=== PATIENT | female | born 1945 | race Caucasian/White ===

== ENCOUNTER 2022-01-07 05:58 | Observation (INO) ==
--- NOTE | 2021-12-25 10:47 | Anesthesiology Consultation ---
Date of Service December 25, 2021 Assessment & Plan (1) Encounter for pre-operative examination: Chart Review Chart Review: Acceptable Risk for Surgery (pending preop Covid testing results ) and Patient NOT seen in Pre Admission Testing - Check BSG AM DOS Per nursing assessment 12/25/21, pt traveled to [place] 12/19/21-12/23/21 for a family gathering. Did not mask. Drove by car. No known Covid positive exposures or Covid related symptoms. No known Covid infection in the past 90 days. Pt is fully vaccinated for Covid. Preop Covid testing scheduled 01/05/22= will await results History Surgery Operation Date: 01/07/22 07:30 Proposed Procedures p Robotic Laparoscopic Assisted Partial Nephrectomy, Removal of Cyst Renal - Alonso Millan, Height/Weight Height: 5 ft 3 in Weight: 120.202 kg Allergies Allergy/AdvReac Type Severity Reaction Status Date / Time adhesive Allergy Severe RASH Verified 12/25/21 09:54 azithromycin Allergy Intermediate Hives Verified 12/25/21 09:54 Medications Home Medications Medication Instructions Recorded Confirmed Last Taken ibuprofen 125 mg-acetaminophen 250 2 tab PO BID 03/10/21 12/25/21 Unknown mg tablet (Advil Dual Action) lisinopril 10 mg tablet 10 mg PO HS 03/10/21 12/25/21 Unknown lorazepam 0.5 mg tablet (Ativan) 0.5 mg PO DAILY PRN Anxiety 03/10/21 12/25/21 Unknown metformin 500 mg 24 hr 500 mg PO BID 03/10/21 12/25/21 Unknown tablet,extended release metronidazole 1 % topical gel 1 applic topical QAM 03/10/21 12/25/21 Unknown (Metrogel) nystatin 100,000 unit/gram topical 1 applic topical DAILY PRN Rash 03/10/21 12/25/21 Unknown powder nystatin-triamcinolone 100,000 1 applic topical DAILY PRN Rash 03/10/21 12/25/21 Unknown unit/g-0.1 % topical cream propylene glycol 0.6 % eye drops 1 drp ophthalmic (eye) DAILY PRN 03/10/21 12/25/21 Unknown (Systane Complete) Dry Eye(S) sertraline 50 mg tablet (Zoloft) 50 mg PO HS 03/10/21 12/25/21 Unknown simvastatin 40 mg tablet 40 mg PO HS 03/10/21 12/25/21 Unknown vitamin B complex 2 cap PO BID 12/25/21 12/25/21 Unknown Past Medical History Medical History (Updated 12/25/21 @ 11:01 by Madalyn Beckham PA-C) Degenerative disc disease Diabetes mellitus, type 2 NIDDM Herniated lumbar intervertebral disc History of breast cancer 2015- left side per records S/p lumpectomy, brachytherapy /Armidex treatment Hypercholesteremia Hypertension Renal cyst Benign appearing to left kidney; right kidney small benign cysts Renal mass noted to left kidney (reason for procedure) Sciatic nerve pain Sleep apnea cpap Past Family History Family History Aunt Diabetes Father Heart disease Hypertension Mother Hypertension Cancer endometrial Past Surgical History Surgical History H/O section x2 H/O: hysterectomy History of bilateral knee arthroplasty History of colonoscopy History of lumpectomy of left breast 12/2015 d/t breast CA - had radiation at [facility] History of tonsillectomy Hx of bilateral cataract extraction Hx of removal of cyst right hand Social History Smoking Status: Former smoker tobacco type: cigarettes Smoking cigarettes per day: 1/2 pk or less per day Do You Dip or Chew Tobacco: No Smoking End Date: 45 years ago Hx Alcohol Use: Yes Alcohol type: beer and wine alcohol intake frequency: holidays/special occasions only Hx Substance Use: No substance use type: does not use Lab Results Anesthesia Preop Results Results Anesthesia Widget: WBC 7.81 K/ul (4.8-10.8) 12/08/21 Hgb 12.3 g/dl (12.0-16.0) 12/08/21 Hct 37.3 % (34.1-44.9) 12/08/21 Plt 240 K/uL (130-400) 12/08/21 Na 138 mmol/L (136-145) 12/08/21 K 4.6 mmol/L (3.5-5.1) 12/08/21 Cl 107 mmol/L (98-107) 12/08/21 CO2 23 mmol/L (21-32) 12/08/21 BUN 20 mg/dl (6-23) 12/08/21 Creat 0.86 mg/dl (0.6-1.2) 12/08/21 Glucose Level 135 mg/dl (70-99(Fasting)) H 12/08/21 HA1c 6.9 % H 10/29/21 Urine Color Yellow 12/08/21 Urine Appearance Clear (Clear) 12/08/21 Urine pH 5.0 (4.5-7.5) 12/08/21 Urine Specific [place] 1.018 (1.000-1.030) 12/08/21 Urine Protein Negative (Negative) 12/08/21 Urine Glucose (UA) Negative (Negative) 12/08/21 Urine Ketones Negative (Negative) 12/08/21 Urine Blood Negative (Negative) 12/08/21 Urine Nitrite Negative (Negative) 12/08/21 Urine Bilirubin Negative (Negative) 12/08/21 Urine Urobilinogen Negative (Negative) 12/08/21 Urine Leukocyte Esterase Trace (Negative) H 12/08/21 Urine WBC (Auto) 1-5 /hpf (0-5) 12/08/21 Urine RBC (Auto) 5-10 /hpf (0-4) H 12/08/21 Urine Hyaline Casts (Auto) 1-5 /lpf (0-5) 12/08/21 Urine Epithelial Cells (Auto) >30 /lpf (0-5) H 12/08/21 Urine Bacteria (Auto) Negative (Negative) 12/08/21 Testing Laboratory Results 12/08/21= URINE CULTURE: More than three types of organisms present, all moderate counts mixed probable skin juliet Electrocardiogram Date: 12/08/21 Findings: + NSR @ (93bpm ) Nonspecific T wave abnormality When compared to EKG from October 06, 2012- no significant change was found per cardio. Chest X-Ray Date: 12/03/21 Findings: + NAD Tortuous aorta
[2022-01-07] MEDS ORDERED: LR 15ML/HR IV SCH (06:00)
[2022-01-07] MEDS ORDERED: fentaNYL citrate 100 MCG/2 ML VIAL ONE ×2 (06:53→06:56)
[2022-01-07] MEDS ORDERED: MIDAZOLAM HCL 1 MG/ML 2ML VIAL ONE (06:53)
[2022-01-07] MEDS ORDERED: LIDOCAINE 2% MPF LOCAL 5 ML VIAL INFIL ONE (06:53)
[2022-01-07] MEDS ORDERED: ONDANSETRON INJ 2 MG/ML 2 ML VIAL ONE ×2 (06:53→11:37)
[2022-01-07] MEDS ORDERED: DEXAMETHASONE SOD INJ 4 MG/ML VIAL ONE (06:53)
[2022-01-07] MEDS ORDERED: PROPOFOL IV EMULSION 10 MG/ML 20 ML VIAL IV ONE (06:53)
--- NOTE | 2022-01-07 07:07 | History & Physical Report ---
Date of Service January 07, 2022 Assessment & Plan (1) Renal mass: (2) Hypertension: (3) Sleep apnea: (4) Diabetes: Plan Left Renal Mass with suspicious features. Left renal cyst. Risks and benefits discussed at length for procedure. These include bleeding, infection, injury to surrounding tissues or organs, and risks associated with anesthesia. Patient states understanding and agrees to proceed. Will sign consent and proceed. Plan for Left Robot Asst Laparoscopic Possible partial nephrectomy with possible removal of cyst. History of Present Illness Primary Care Provider: Dolly Bundy Patient here for procedure. No changes in medical issues. No major changes in urinary issues. Continued issues and concerns. No change in pain or discomfort. No severe fevers or chills. No chest pain or shortness of breath. Risks and benefits discussed at length for procedure. These include bleeding, infection, injury to surrounding tissues or organs, and risks associated with anesthesia. Patient and/or family states understanding and agrees to proceed. Consent and supporting information completed. Allergies Allergy/AdvReac Type Severity Reaction Status Date / Time adhesive Allergy Severe RASH Verified 01/07/22 06:17 azithromycin Allergy Intermediate Hives Verified 01/07/22 06:17 Home Medications Medication Instructions Recorded Confirmed Type ibuprofen 125 mg-acetaminophen 250 2 tab PO BID 03/10/21 01/07/22 History mg tablet (Advil Dual Action) lisinopril 10 mg tablet 10 mg PO HS 03/10/21 01/07/22 History lorazepam 0.5 mg tablet (Ativan) 0.5 mg PO DAILY PRN Anxiety 03/10/21 01/07/22 History metformin 500 mg 24 hr 500 mg PO BID 03/10/21 01/07/22 History tablet,extended release metronidazole 1 % topical gel 1 applic topical QAM 03/10/21 01/07/22 History (Metrogel) nystatin 100,000 unit/gram topical 1 applic topical DAILY PRN Rash 03/10/21 01/07/22 History powder nystatin-triamcinolone 100,000 1 applic topical DAILY PRN Rash 03/10/21 01/07/22 History unit/g-0.1 % topical cream propylene glycol 0.6 % eye drops 1 drp ophthalmic (eye) DAILY PRN 03/10/21 01/07/22 History (Systane Complete) Dry Eye(S) sertraline 50 mg tablet (Zoloft) 50 mg PO HS 03/10/21 01/07/22 History simvastatin 40 mg tablet 40 mg PO HS 03/10/21 01/07/22 History vitamin B complex 2 cap PO BID 12/25/21 01/07/22 History Past Med/Surg History Medical History Degenerative disc disease Diabetes mellitus, type 2 NIDDM Herniated lumbar intervertebral disc History of breast cancer 2015- left side per records S/p lumpectomy, brachytherapy /Armidex treatment Hypercholesteremia Hypertension Renal cyst Benign appearing to left kidney; right kidney small benign cysts Renal mass noted to left kidney (reason for procedure) Sciatic nerve pain Sleep apnea cpap Surgical History H/O section x2 H/O: hysterectomy History of bilateral knee arthroplasty History of colonoscopy History of lumpectomy of left breast 12/2015 d/t breast CA - had radiation at [facility] History of tonsillectomy Hx of bilateral cataract extraction Hx of removal of cyst right hand Family History Aunt Diabetes Father Heart disease Hypertension Mother Hypertension Cancer endometrial Social History Smoking Status: Former smoker Cigarettes Per Day: 1/2 pk or less per day; Smoking End Date: 45 years ago; Second Hand Exposure: No; Do You Dip or Chew Tobacco: No; Tobacco Cessation Education Requested by Patient: No Hx Alcohol Use: Yes Alcohol type: beer and wine Alcohol Intake Frequency: Monthly or Less Hx Substance Use: No Preferred Language: Greenlandic Communication Ability: Effective Hearing Ability: Normal Cook Larder Required: No Beliefs That Will Affect Care: None marital status: Current Living Situation: Spouse current occupational status: retired Other Information That Helps Us Care for You: No Feels Safe at Home: Yes Safety Concerns: Feels Safe At This Time Assistive Devices: Cane and CPAP Review of Systems All systems reviewed & are unremarkable except as noted in HPI & below Physical Exam Physical Exam: General: Alert/Arousable. No Acute illness. . HEENT: Inspection normal. Normal inspection of face. Normal inspection of neck. Psychologic: Normal affect/No change in mentation. Respiratory: No use of accessory muscles. No respiratory changes or exacerbation or changes with tachypnea or dyspnea. Cardiovascular: No tachycardia Skin: [place] and Dry. No new rashes or visible lesions. Abdomen: Normal inspection. No guarding. Results & Data ([facility]) Vital Signs (Past 12 Hours) Vital Signs Temp Pulse Resp BP Pulse Ox O2 Del Method 01/07/22 06:22 36.9 C 90 20 164/78 H 95 Room Air, CPAP 01/07/22 06:22 Room Air, CPAP PG Care Time/CCT Total # of Minutes Spent Total Time Spent with Patient: Total time spent is greater than 50% in coordination of care (as documented) at patient's floor/unit and/or counseling patient: Coding Level of Care Code None Diagnoses Renal mass N28.89 Hypertension I10 Sleep apnea G47.30 Diabetes E11.9
[2022-01-07] MEDS ORDERED: SUGAMMADEX SODIUM 200 MG/2 ML VIAL IV ONE (07:31)
[2022-01-07] MEDS ORDERED: BUPIVACAINE 0.5 % 5 MG/1 ML MPF 30ML VIAL ONE (08:21)
[2022-01-07] MEDS ORDERED: FLOSEAL HEMOSTATIC MATRIX 10ML TOP ONE (10:29)
[2022-01-07] MEDS ORDERED: SURGICEL ABSORB HEMOSTAT 2IN X 14IN TOP ONE (10:29)
[2022-01-07] MEDS ORDERED: TISSEEL FIBRIN SEALANT 10ML TOP ONE (10:29)
[2022-01-07] MEDS ORDERED: ceFAZolin 330 MG/ML 1 GM VIAL ONE (11:38)
[2022-01-07] MEDS ORDERED: ceFAZolin 2000MG 2,000 MG/15 ML SYR IV STA (11:38)
[2022-01-07] MEDS ORDERED: ACETAMINOPHEN 1000 MG/100 ML IV IV ONE (11:44)
[2022-01-07] MEDS ORDERED: ONDANSETRON INJ 2 MG/ML 2 ML VIAL IV PRN ×2 (12:24→13:06)
[2022-01-07] MEDS ORDERED: MoRPHine SULFATE 2 MG/ML CARP IV PRN (12:24)
[2022-01-07] MEDS ORDERED: MoRPHine SULFATE 4 MG/ML 1 ML CARP\\VIAL IV PRN (12:24)
[2022-01-07] MEDS ORDERED: oxyCODONE HCL IR 5 MG TAB (IMMEDIATE RELEASE) PO PRN (12:24)
--- NOTE | 2022-01-07 12:40 | Operative Report ---
PG Post Operative Report Pre & Post Diagnosis Operation Date: 01/07/22 07:50 Pre-Op Diagnosis: Renal Mass Left. Large left Renal Cyst Post-Op Diagnosis: Renal Mass Left, Large Left Renal Cyst I identified the patient and participated in the time-out.: Yes Procedure Operation Date: 01/07/22 07:50 Actual Procedures p Robotic Laparoscopic Assisted Left Partial Nephrectomy, Decortication/Removal of Large Cyst Renal, Extensive lysis of adhesions - Alonso Millan, Surgeon Alonso Millan, II, DO Customer Development Representative Durga ERVIN and Celena CHEUNG Estimated Blood Loss 50 Findings Consistent with Post-Op Diagnosis Massive anterior cyst with large Upper pole renal mass on left. Extensive adhesions of colon and omentum to lateral wall. Specimens Left Renal mass. Left Decorticated Cyst wall Drains 10 Fr Bean Drain 18 Fr Mckenzie catheter. Anesthesia Type General Complications none Disposition Disposition: Recovery Room Indications Patient with enhancing left renal mass. Patient also had a 13 cm large renal cyst causing considerable mass effect. Risk and benefits were discussed at length. Patient elected to undergo robotic assisted laparoscopic partial nephrectomy. Description of Procedure The patient was brought to the operative suite and placed under general endotracheal intubation anesthesia in the supine position. The patient was transferred to the lateral position with the operative side up. At this point, the patient prepped and draped in the usual sterile fashion and a timeout was co mpleted. Preoperative antibiotics of Ancef 3 grams had been given. NERY's and SCD's were placed on the patient's lower extremities. A catheter was placed using sterile technique. With the time out completed the patient was flexed and the skin was marked. Due to patient's habitus from morbid obesity as well as the mass from the large renal cyst the positioning had to be adjusted. The lateral camera port site was anesthetized. A small incision was made into the skin and subcutaneous tissues. A Varess needle was selected and placed. The needle was easily moved and it was irrigated and aspirated without any issues or concerns for placement. Insufflation commenced. Once insufflated, A camera port was placed. The cavity was insufflated to 12-15 mmHG. A laparoscopic camera was placed and the abdominal cavity inspected. No bleeding, injury, or other concerning features were noted. At this point, the skin was marked for port placement and 8mm working ports were placed. The skin was anesthetized down to fascia and an approx 1cm incision was made to place the 3 x 8mm ports. Two assistant housekeeping manager ports were also placed in similar fashion under direct visualization in a paramedian position. The robot was positioned and docked. The camera was placed and all trocars were positioned under direct visualization. Dilia SILVEIRANP was integral in port placement, camera utilization, and docking procedure. She remained in sterile attire and then proceeded to assist the remainder of the case. Dr. Jose Dallas was readily available for assistance during velazco portions of the proceeding procedure. Dr. Dallas assumed the airplane first officer role for the major portion of mass removal, vessel clamping, and closure of the kidney. At this point, I transitioned to the robotic console. The colon was mobilized medially to expose the retroperitoneum and the area assessed. Extensive Adhesions were freed to allow mobilization. Greater than 20 minutes were necessary to excise through the extensive adhesions and attachments especially of the omental tissue. Both the colon and the omentum were adhered likely due to inflammation around the very large cystic lesion. An additional amount of s mall amount of adhesions were noted from the colon and were freed. Once freed the large cystic lesion was exposed. At this point the cystic wall was opened to allow drainage of the large amount of fluid from inside the cystic lesion. Greater than 550 mL of clear fluid was drained from the large cystic lesion which drastically allowed an increase in mobility. Additional adhesions were then further dissected free to allow the colon to be further released. These were dissected with blunt technique. Cautery was used to assist dissection and control bleeding. The retroperitoneal fat was assessed. The ureter and gonadal vein were identified. The ureter was isolated and dissection was taken superiorly. This was followed to the renal pelvis. The Renal Artery and Vein were then cleaned and exposed. Clamp placement was assessed and good access was achieved. The perirenal fat anterior to the kidney was then dissected. Due to the large amount of laxity of tissue after the drainage of the cyst the tissue surrounding the cyst were first dissected around. The cystic wall was then incised and the cyst cavity was unroofed with removal of the severely thickened and fibrous cystic capsule over the cavity with the kidney. All bleeding was controlled though it was found to be extremely minimal throughout the process. Additional pockets of fluid were discovered as the cystic lesion did have numerous loculations and additional chambers. Once the cyst was completely decorticated the edges of the incised tissue were assessed and a areas of bleeding were fulgurated using cautery. With the excess tissue removed the area was inspected. The bed of the cystic lesion did not have any areas of active bleeding. No sign of active drainage from any of the areas or cavities. With removal of this tissue the mass was considerably easier to identify and the surrounding perinephric fat was able to be cleared to allow access to the edges of the mass. The mass and surrounding tissues were exposed. The kidney was then further mobilized. The ultrasound probe was placed and the mass further examined. The edges were marked. At this point Dr. Jose Dallas scrubbed into continue with the mass removal section of the procedure. The Vessels were assessed a final time. 1 x Bulldog clamps were placed on the artery and 1 x Bulldog clamp on the vein. The kidney appropriately blanched. The previously marked margins were used to start the incision into the kidney. The mass was completely excised without evidence of penetrating into the capsule of the mass. The base of resection bed was assessed and small vessels were cauterized. The collecting system did appear to be opened in a small area. A barbed suture was selected and the nephrotomy closed. Care was taken to close the collecting system opening. 3-0 Vicryl sutures were then used to close the edges of the elliptical opening. A total of 2 vicryl sutures were used to close and bolster the edges. At this point, the bulldog cla mps were removed. Warm ischemia time, in total, was 13 minutes and 32 seconds. The kidney was full assessed after removal of clamps. No bleeding or other major areas of concern. Weck and Hemolock clips were used to bolster and tightened to approximate the edges. Surgicel hemostatic agent sheets were placed around the vessels and on the incised edge. Additional Surgicel was also placed within the cystic cavity. Tisseel and Floseal hemostatic agents were also placed along the incised edge as well as over the cystic cavity. These hemostatic agent was also placed on the vessels. No major bleeding or other issues. Gerota's tissues were replaced and additional 3-0 Vicryl suture which was attached with Hem-o-alonso clips to cover the area. The excised mass was placed in an endocatch bag for [facility]. An additional Endo Catch bag was then used to place the decorticated tissue from the large renal cyst. At this point Dr. Dallas return the airplane first officer duties to Dilia Calixto. The entire dissection space was inspected one final time. No bleeding or injuries or areas of concern were noted. No tumor or other concerning features were noted. At this point, the robot was undocked and moved away from the patient. The port sites were all assessed laparoscopically. The endoscopic bags wer moved into the lower assistant housekeeping manager port. The 12 mm port sites were closed with the Miguelito Fernández device. The other ports were assessed and no issues observed. The most lateral port site was used to place a 10 Armenian Bean drain. This was attached with a silk suture and positioned in along the gutter of the left side. The ports were then all removed. The abdomen was emptied of the excess air. And the drain was placed to a YOVANI suction. The assistant housekeeping manager port incision was opened further exposing fascia which was then opened in order to removed the mass within the bag. The 2 different specimens were sent off for pathologic analysis. A running 1-0 PDS suture was used to close fascia. The skin at each site was closed with a surgical stapling device. The area was cleaned and bandages were placed on each incision. The patient was cleaned and bandaged. The patient was moved back into the supine position The patient was cleaned, aroused from anesthesia, and transferred to the pacu in stable condition having tolerated the procedure well with no complications. I was present and participated in all aspects of the procedure. Jose Dallas MD was integral in the major portion of the procedure as above. AZIZA Nayak was critical in the portions as mentioned above. Will plan to observe postoperatively and monitor. Mckenzie to be removed in the morning. Will likely maintain drain and monitor drainage after decortication of cyst. Will likely plan on drain removal in approx 1 week with sammy in 7-10 days. Plan to discuss pathology in approx 2-3 weeks by phone once available. I attest to the content of the Intraoperative Record and any orders documented therein. Any exceptions are noted below.
[2022-01-07] MEDS ORDERED: ATROPINE SULFATE 0.1 MG/ML 10ML SYR IV PRN (13:06)
[2022-01-07] MEDS ORDERED: PROMETHAZINE HCL 6.25 MG in SODIUM CHLORIDE 0.9% 50 ML IV PRN (13:06)
[2022-01-07] MEDS ORDERED: HYDROmorphone INJ 0.5 MG/0.5 ML SYR ONE (13:09)
[2022-01-07] MEDS: HYDROmorphone INJ 1 MG/ML SYRINGE IV PRN ×5 (13:10→17:06)
[2022-01-07 13:49] LABS: Hematocrit (blood only) 37.6 % (34.1-44.9); Hemoglobin 12.5 g/dl (12.0-16.0); Mean Corpuscular Hemoglobin 31.3 pg (25.0-34.0); Mean Corpuscular Hgb Conc 33.2 g/dL (32.0-36.0); Mean Corpuscular Volume 94.2 fL (80.0-100.0); Mean Platelet Volume 10.2 fL (9.4-12.3); Platelet Count 251 K/uL (130-400); RDW Coefficient of Variation 13.2 % (11.5-14.5); RDW Standard Deviation 45.3 fL (36.4-46.3); Red Blood Count 3.99 M/uL (3.93-5.22)
[2022-01-07 14:01] LABS: BUN Creatinine Ratio 14.6 (10-20); Calcium 9.2 mg/dl (8.5-10.1); Creatinine Clr Calc Pharmacy 50.1 ml/min; Est GFR (Non-African American) 43.2 ml/min; Potassium 4.1 mmol/L (3.5-5.1)
[2022-01-07 14:13] LABS: Basophils # (auto) 0.03 K/uL (0-0.2); Basophils % (auto) 0.2 %; Eosinophils # (auto) 0.03 K/uL (0-0.50); Eosinophils % (auto) 0.2 %; Immature Granulocytes # (auto) 0.11 K/uL (0.00-0.02); Immature Granulocytes % (auto) 0.8 %; Lymphocytes # (auto) 0.85 K/uL (1.2-3.4); Lymphocytes % (auto) 6.2 %; Monocytes # (auto) 1.16 K/uL (0.24-0.82); Monocytes % (auto) 8.5 %; Neutrophils # (auto) 11.52 K/uL (1.4-6.5); Neutrophils % (auto) 84.1 %
[2022-01-07] MEDS ORDERED: PHARMACY GLYCEMIC MGMT CONSULT PRN (14:42)
[2022-01-07] MEDS ORDERED: LORazepam 0.5 MG TAB PO PRN (14:42)
[2022-01-07] MEDS ORDERED: NYSTATIN POWDER 15GM BTL EXT PRN (14:42)
[2022-01-07] MEDS ORDERED: GLUCOSE 40% GEL 15 GM TUBE PO PRN (15:00)
[2022-01-07] MEDS ORDERED: GLUCAGON FOR INJ 1 MG VIAL IM PRN (15:00)
[2022-01-07] MEDS ORDERED: CARBOHYDRATES FOR HYPOGLYCEMIA PO PRN (15:00)
[2022-01-07] MEDS ORDERED: GLUCOSE 10 TAB/TUBE PO PRN (15:00)
[2022-01-07] MEDS ORDERED: NovoLIN-N (NPH) PER UNIT CHARGE SQ ONE (15:00)
[2022-01-07] MEDS ORDERED: DEXTROSE 50% 50 ML SYRINGE IV PRN (15:00)
--- NOTE | 2022-01-07 15:01 | Pharmacy Report ---
Pharmacy Glycemic Short Note 2 - Date of Service January 07, 2022 - Glycemic Short BSG Results (Last 24 hours): 01/07/22 01/07/22 01/07/22 06:23 13:11 14:27 Glucose 221 H POC Glucose 146 H 196 H OUTPATIENT ANTIDIABETIC REGIMEN: * metformin 500 mg PO BID * HbA1C = 6.9% ASSESSMENT: * Patient is s/p surgery for kidney mass. Patient received steroids during surgery- dexamethasone 4 mg IV x 1. * BSG prior to surgery was 146 mg/dL. After surgery was 196 mg/dL. * Due to body habitus will give 0.4 unit/kg x 1 for steroid hyperglycemia. * Novolog weight-based stress 2. Overnight checks. PLAN FOR INPATIENT GLYCEMIC CONTROL: * Basal insulin * NPH 35 units SQ x 1 * Bolus insulin * NovoLog per scale ACHS or Q6hrs while NPO * Goal Range: Low 110 mg/dL - High 140 mg/dL * Correction Factor: 20 mg/dL/unit * Nutritional / Prandial insulin per carb ratio of 1 unit per 7 grams CHO consumed
[2022-01-07] MEDS: LACTATED RINGER'S 1,000 ML IV SCH (15:26)
--- NOTE | 2022-01-07 15:38 | Anesthesiology Progress Note ---
Date of Service January 07, 2022 Anesthesia Post Procedure Vital Signs Vital Signs: Temp Pulse Pulse Resp BP Pulse Ox O2 Del Method 01/07/22 15:00 36.5 C 89 16 131/75 93 Room Air 01/07/22 14:40 36.9 C 86 16 159/78 H 98 Room Air 01/07/22 14:25 89 21 147/71 H 95 Nasal Cannula 01/07/22 14:15 89 20 162/73 H 95 Nasal Cannula 01/07/22 13:55 89 19 159/72 H 96 Nasal Cannula 01/07/22 14:05 88 19 146/72 H 95 Nasal Cannula 01/07/22 13:45 87 15 163/73 H 96 Nasal Cannula 01/07/22 13:35 36.3 C L 87 15 155/80 H 96 Nasal Cannula 01/07/22 13:25 89 15 183/78 H 96 Room Air 01/07/22 13:15 88 14 172/91 H 97 Oxymask 01/07/22 13:05 89 13 181/79 H 98 Oxymask 01/07/22 12:55 94 H 13 171/64 H 99 Oxymask 01/07/22 12:45 99 H 15 150/82 H 98 Oxymask 01/07/22 12:39 36.0 C L 92 H 20 130/74 97 Oxymask 01/07/22 06:22 36.9 C 90 20 164/78 H 95 Room Air, CPAP 01/07/22 06:22 Room Air, CPAP O2 Flow Rate 01/07/22 15:00 01/07/22 14:40 01/07/22 14:25 2 01/07/22 14:15 2 01/07/22 13:55 2 01/07/22 14:05 2 01/07/22 13:45 2 01/07/22 13:35 2 01/07/22 13:25 01/07/22 13:15 4 01/07/22 13:05 4 01/07/22 12:55 6 01/07/22 12:45 10 01/07/22 12:39 15 01/07/22 06:22 01/07/22 06:22 Pain Intensity Left Leg: Pain Intensity: 4 Left Abdomen: Pain Intensity: 4 Transfer of Care Handoff Completed per policy Notes Mental Status: alert / awake / arousable Patient Amnestic to Procedure: Yes Nausea / Vomiting: adequately controlled Pain: adequately controlled Airway Patency, RR, SpO2: stable & adequate BP & HR: stable & adequate Hydration State: stable & adequate Anesthetic Complications: no major complications apparent
[2022-01-07] MEDS: ACETAMINOPHEN 325 MG TAB PO SCH ×2 (15:50→18:30)
[2022-01-07] MEDS: ceFAZolin 2000MG 2,000 MG/15 ML SYR IV SCH ×2 (15:50→21:12)
--- NOTE | 2022-01-07 16:27 | Hospitalist Consultation ---
Date of Consultation January 07, 2022 Assessment & Plan (1) Renal mass: Alexandria is a 76-year-old female with a past medical history of hyperlipidemia, hypertension, breast cancer, diabetes, cataracts, and sleep apnea who presented for L partial nephrectomy 2/2 renal mass. Consulted for postoperative management. Left renal mass, s/p partial left nephrectomy 01/07/2022 Uncomplicated procedure.DVT prophylaxis, pain control, pathology per surgical team Tylenol 650mg Q6H. Tolerating pain. may continue to use oxycodone for breakthrough pain. avoid morphine if possible 2/2 mildly elevated renal function Preoperative labs: Hemoglobin 12.5, WBC 13, creatinine 1.23 (last baseline 0.8-1.0) Ultrasound 11/2021: 4 x 3.7 x 3 cm last lesion at left upper pole suspicious for RCC Glucose [id number] A1c 6.9% 10/2021 calcium normal COVID-negative Hyperlipidemia Continue simvastatin Hypertension -Last took lisinopril midnight prior to surgery On lisinopril 10 mg p.o. nightly held both post procedurally and in the setting of elevated baseline creatinine Trend BMP Resume at 48 hours, or if needed for hypertension tomorrow if creatinine returns to baseline May use amlodipine 5 mg p.o. or low-dose of hydralazine if needed for acute hypertension greater than 180 overnight Anxiety/depression Continue sertraline 50 mg p.o. nightly We will continue home dose of lorazepam 0.5 mg p.o. as needed, uses rarely for anxiety. Has hx of one panic attak. Only uses ~2x per year. Type 2 diabetes mellitus A1c 6.9% 10/2021 Hold home metformin - Pharmacy consult in place by primary team, appreciate recs. Goal BSG [id number], CF 20, ratio 1:7, basal NPH 35x1 Advance to type II diabetic carb consistent diet when tolerated Obstructive sleep apnea CPAP nightly as needed - Brought home CPAP may use DVT prophylaxis: Per primary surgical team, continued on heparin subcu 5000 every 12 at this Diet: Clears, advance as able per surgical team to type II DM continue LR 100 until p.o. improved/tolerated then discontinue Disposition: [facility] CODE STATUS: Full code (2) Hypertension: (3) Hypercholesteremia: (4) Arthritis: (5) Diabetes: (6) Depression: (7) Sleep apnea: History of Present Illness Attending Physician: Alonso Millan, II, DO History of Present Illness Alexandria is a 76-year-old female with a past medical history of hyperlipidemia, hypertension, breast cancer, diabetes, cataracts, and sleep apnea who presented for L partial nephrectomy 2/2 renal mass. Consulted for postoperative management. Alexandria presented for nephrectomy due to a left renal mass concerning for RCC. Postoperatively seen at bedside and is doing well. She is normotensive, pulse of 86, breathing comfortably with rate of 16 on room air in no acute distress. Surgical dressing is intact, left YOVANI drain with sanguinous material Sukhwinder reports she came in after a year. Has chronic sciatica and spinal arthritis problems. Pain doctor recommended she get an MRI which showed a L re nal spot. She had a followup CT scan which showed a lesion on her kidney. Connect with Dr. Schneider. [place] that her lesion likely not malignant, but needed close monitoring for 1 year. At her followup ultrasound it had enlarged and looked like cancer, and was recommended for removal. She came in today for removal of the malignant lesion and large cyst. She is seen postoperatively and is feeling. Last took lisinopril last night (~16 hours ago) along with cholesterol medicine and antidepressant. Hx type 2 DM. Working on weight loss, DM has worsened with weight gain. has been on Metformin for 3 years. Takes 2x per day. Had diarrhea initially which resolved. Medical History: Reviewed Medications: Reviewed Surgical History: Reviewed Allergies: Reviewed. Azithromycin --> hives. Social History: No tobacco use. Rare social alcohol use, every few months. Code Status: Full Code. Surrogate would be daughter nilam [phone] first, but in conjunction with . Allergies Allergy/AdvReac Type Severity Reaction Status Date / Time adhesive Allergy Severe RASH Verified 01/07/22 06:17 azithromycin Allergy Intermediate Hives Verified 01/07/22 06:17 Home Medications Medication Instructions Recorded Confirmed Type ibuprofen 125 mg-acetaminophen 250 2 tab PO BID 03/10/21 01/07/22 History mg tablet (Advil Dual Action) lisinopril 10 mg tablet 10 mg PO HS 03/10/21 01/07/22 History lorazepam 0.5 mg tablet (Ativan) 0.5 mg PO DAILY PRN Anxiety 03/10/21 01/07/22 History metformin 500 mg 24 hr 500 mg PO BID 03/10/21 01/07/22 History tablet,extended release metronidazole 1 % topical gel 1 applic topical QAM 03/10/21 01/07/22 History (Metrogel) nystatin 100,000 unit/gram topical 1 applic topical DAILY PRN Rash 03/10/21 01/07/22 History powder nystatin-triamcinolone 100,000 1 applic topical DAILY PRN Rash 03/10/21 01/07/22 History unit/g-0.1 % topical cream propylene glycol 0.6 % eye drops 1 drp ophthalmic (eye) DAILY PRN 03/10/21 01/07/22 History (Systane Complete) Dry Eye(S) sertraline 50 mg tablet (Zoloft) 50 mg PO HS 03/10/21 01/07/22 History simvastatin 40 mg tablet 40 mg PO HS 03/10/21 01/07/22 History vitamin B complex 2 cap PO BID 12/25/21 01/07/22 History Patient History Medical History Degenerative disc disease Diabetes mellitus, type 2 NIDDM Herniated lumbar intervertebral disc History of breast cancer 2015- left side per records S/p lumpectomy, brachytherapy /Armidex treatment Hypercholesteremia Hypertension Renal cyst Benign appearing to left kidney; right kidney small benign cysts Renal mass noted to left kidney (reason for procedure) Sciatic nerve pain Sleep apnea cpap Surgical History H/O section x2 H/O: hysterectomy History of bilateral knee arthroplasty History of colonoscopy History of lumpectomy of left breast 12/2015 d/t breast CA - had radiation at [facility] History of tonsillectomy Hx of bilateral cataract extraction Hx of removal of cyst right hand Family History Aunt Diabetes Father Heart disease Hypertension Mother Hypertension Cancer endometrial Social History Smoking Status: Former smoker Cigarettes Per Day: 1/2 pk or less per day; Smoking End Date: 45 years ago; Second Hand Exposure: No; Do You Dip or Chew Tobacco: No; Tobacco Cessation Education Requested by Patient: No Hx Alcohol Use: Yes Alcohol type: beer and wine Alcohol Intake Frequency: Monthly or Less Hx Substance Use: No Preferred Language: Armenian Communication Ability: Effective Hearing Ability: Normal Party Director Required: No Beliefs That Will Affect Care: None marital status: Current Living Situation: Spouse current occupational status: retired Other Information That Helps Us Care for You: No Feels Safe at Home: Yes Safety Concerns: Feels Safe At This Time Assistive Devices: Cane and Walker Review of Systems Review of Systems: All systems reviewed & are unremarkable except as noted in HPI & below Physical Exam Physical Exam: General: A&Ox3. NAD. Cooperative. HEENT: Atraumatic, normocephalic. Vision and hearing grossly intact Pulm: CTAB A&P. -wheezes, -rales, -rhonchi. Symmetrical chest rise. No increase in work of breathing. No respiratory distress. Cardiac: RRR, -mrg. Radial pulses intact and symmetrical. Abdominal: Surgical dressing intact, focal overlying tenderness in left lower quadrant and mild on right without rebound/guarding. Dressing is C/D/I. YOVANI drain with sanguinous material Extremities: Warm, dry. Moving all extremities equally. Sensation soft touch intact in hands and feet without deficit. Entomology Teacher strength and ankle dorsiflexion/plantarflexion intact. No edema. Results & Data Results & Data ([facility]) Vital Signs (Past 12 Hours) Vital Signs Temp Pulse Pulse Resp BP Pulse Ox O2 Del Method 01/07/22 15:39 36.8 C 86 16 125/75 93 Room Air 01/07/22 15:00 36.5 C 89 16 131/75 93 Room Air 01/07/22 14:40 36.9 C 86 16 159/78 H 98 Room Air 01/07/22 14:25 89 21 147/71 H 95 Nasal Cannula 01/07/22 14:15 89 20 162/73 H 95 Nasal Cannula 01/07/22 13:55 89 19 159/72 H 96 Nasal Cannula 01/07/22 14:05 88 19 146/72 H 95 Nasal Cannula 01/07/22 13:45 87 15 163/73 H 96 Nasal Cannula 01/07/22 13:35 36.3 C L 87 15 155/80 H 96 Nasal Cannula 01/07/22 13:25 89 15 183/78 H 96 Room Air 01/07/22 13:15 88 14 172/91 H 97 Oxymask 01/07/22 13:05 89 13 181/79 H 98 Oxymask 01/07/22 12:55 94 H 13 171/64 H 99 Oxymask 01/07/22 12:45 99 H 15 150/82 H 98 Oxymask 01/07/22 12:39 36.0 C L 92 H 20 130/74 97 Oxymask 01/07/22 06:22 36.9 C 90 20 164/78 H 95 Room Air, CPAP 01/07/22 06:22 Room Air, CPAP O2 Flow Rate 01/07/22 15:39 01/07/22 15:00 01/07/22 14:40 01/07/22 14:25 2 01/07/22 14:15 2 01/07/22 13:55 2 01/07/22 14:05 2 01/07/22 13:45 2 01/07/22 13:35 2 01/07/22 13:25 01/07/22 13:15 4 01/07/22 13:05 4 01/07/22 12:55 6 01/07/22 12:45 10 01/07/22 12:39 15 01/07/22 06:22 01/07/22 06:22 PG Care Time/CCT Total # of Minutes Spent Total Time Spent with Patient: Total time spent is greater than 50% in coordination of care (as documented) at patient's floor/unit and/or counseling patient: Coding Level of Care Code 77094 Inpt Consult Level 4 Diagnoses Renal mass N28.89 Hypertension I10 Hypercholesteremia E78.00 Arthritis M19.90 Diabetes E11.9 Depression F32.A Sleep apnea G47.30
[2022-01-07] MEDS: INSULIN ASPART PER UNIT SC SCH ×2 (18:30→21:12)
[2022-01-07] MEDS: DOCUSATE SODIUM 100 MG CAP PO SCH (20:13)
[2022-01-07] MEDS: HEPARIN SOD 5,000 UNIT/0.5 ML VIAL SQ SCH (20:13)
[2022-01-07] MEDS: SIMVASTATIN 40 MG TAB PO SCH (20:13)
[2022-01-07] MEDS: SERTRALINE HCL 50 MG TABLET PO SCH (20:13)
[2022-01-07] MEDS ORDERED: lisinopril 10 MG TAB PO SCH (21:00)
[2022-01-08] MEDS: INSULIN ASPART PER UNIT SC SCH ×6 (00:09→20:43)
[2022-01-08] MEDS: ACETAMINOPHEN 325 MG TAB PO SCH ×4 (00:11→18:06)
[2022-01-08] MEDS: LACTATED RINGER'S 1,000 ML IV SCH ×3 (00:12→18:07)
[2022-01-08 06:28] LABS: Basophils # (auto) 0.03 K/uL (0-0.2); Basophils % (auto) 0.3 %; Eosinophils # (auto) 0.04 K/uL (0-0.50); Eosinophils % (auto) 0.4 %; Hematocrit (blood only) 31.8 % (34.1-44.9); Hemoglobin 10.4 g/dl (12.0-16.0); Immature Granulocytes # (auto) 0.03 K/uL (0.00-0.02); Immature Granulocytes % (auto) 0.3 %; Lymphocytes # (auto) 1.13 K/uL (1.2-3.4); Mean Corpuscular Hgb Conc 32.7 g/dL (32.0-36.0); Mean Corpuscular Volume 94.9 fL (80.0-100.0); Mean Platelet Volume 9.8 fL (9.4-12.3); Monocytes % (auto) 13.8 %; Neutrophils % (auto) 73.2 %; Platelet Count 213 K/uL (130-400); RDW Coefficient of Variation 13.2 % (11.5-14.5); RDW Standard Deviation 46.1 fL (36.4-46.3); Red Blood Count 3.35 M/uL (3.93-5.22); White Blood Count 9.43 K/ul (4.8-10.8)
[2022-01-08 07:16] LABS: BUN Creatinine Ratio 15.7 (10-20); Calcium 8.5 mg/dl (8.5-10.1); Creatinine Clr Calc Pharmacy 53.6 ml/min; Est GFR (African American) 54.3 ml/min; Est GFR (Non-African American) 46.8 ml/min; Potassium 4.3 mmol/L (3.5-5.1)
[2022-01-08] MEDS: HEPARIN SOD 5,000 UNIT/0.5 ML VIAL SQ SCH ×2 (09:00→20:42)
[2022-01-08] MEDS: DOCUSATE SODIUM 100 MG CAP PO SCH ×2 (09:00→20:42)
--- NOTE | 2022-01-08 09:47 | Urology Progress Note ---
Date of Service January 08, 2022 Assessment & Plan (1) Renal mass: Plan: - Pt POD#1 s/p Robotic Laparoscopic Assisted Left Partial Nephrectomy, Removal of Cyst Renal - Subjectively doing well, progressing as expected - Afebrile, lab work reviewed creatinine 1.15, WBC 9.43, hemoglobin 10.4 - Pain is tolerable - Tolerating clear liquids, will advance to full liquid diet - Dressings removed, incisions appropriate - Maintain YOVANI drain at present - Discontinue Mckenzie catheter this morning, monitor for void - Encouraged OOB ambulation - Anticipate home tomorrow if she continues to progress as expected Admission and Anticipated Discharge Date Admission Date: January 07, 2022 Subjective Patient seen and examined at bedside this AM. She is awake, alert, and sitting up in bedside chair eating breakfast. No acute issues overnight. Tolerating clear liquid diet. No nausea or vomiting. Reports incisional discomfort with movement. No pain while sitting or in bed. Mckenzie intact and draining clear yellow urine. No fever or chills. YOVANI drain output overnight - 70 mL. Review of Systems Constitutional: as per Subjective / HPI Gastrointestinal: as per Subjective / HPI Genitourinary: as per Subjective / HPI Physical Exam Constitutional: well developed, well nourished and + obese; no acute distress and not ill appearing Respiratory: normal respiratory effort and able to speak in complete sentences; no respiratory distress and no labored breathing Cardiovascular: Extremities: no pedal edema Gastrointestinal (Abdomen): Inspection/Auscultation: abdomen normal to inspection; abdomen not distended Percussion/Palpation: abdomen soft; abdomen nontender and no guarding Musculoskeletal: Extremities: extremities normal to inspection Skin: Surgical dressings C/D/I, removed at bedside. Incisions healthy, well approximated with sammy. Neurologic: moves all extremities and awake Psychiatric: Orientation: alert and oriented x 3 Genitourinary: Mckenzie intact, patent and draining clear yellow urine Results & Data ([facility]) Vital Signs (Past 12 Hours) Vital Signs Temp Pulse Pulse Resp BP Pulse Ox O2 Del Method 01/08/22 07:39 36.8 C 100 H 20 124/70 90 Room Air 01/08/22 04:01 37.0 C 99 H 18 125/73 91 Room Air 01/07/22 23:55 36.9 C 94 H 18 116/72 92 Room Air PG Care Time/CCT Total # of Minutes Spent Total Time Spent with Patient: Total time spent is greater than 50% in coordination of care (as documented) at patient's floor/unit and/or counseling patient: Coding Level of Care Code 73256 Subseq Hosp Care Lvl 2 Diagnoses Renal mass N28.89
[2022-01-08] MEDS: oxyCODONE HCL IR 5 MG TAB (IMMEDIATE RELEASE) PO PRN ×2 (10:34→14:41)
--- NOTE | 2022-01-08 11:14 | Hospitalist Progress Note ---
Date of Service January 08, 2022 Assessment & Plan (1) Renal mass: Plan: Alexandria is a 76-year-old female with a past medical history of hyperlipidemia, hypertension, breast cancer, diabetes, cataracts, and sleep apnea who presented for L partial nephrectomy 2/2 renal mass. Consulted for postoperative management. Left renal mass, s/p partial left nephrectomy 01/07/2022 POD #1 Uncomplicated procedure.DVT prophylaxis, pain control, pathology per surgical team Tylenol 650mg Q6H. Tolerating pain. may continue to use oxycodone for breakthrough pain. avoid morphine if possible 2/2 mildly elevated renal function Preoperative labs: Hemoglobin 12.5, WBC 13, creatinine 1.23 (last baseline 0.8-1.0) Ultrasound 11/2021: 4 x 3.7 x 3 cm last lesion at left upper pole suspicious for RCC Glucose 588853 A1c 6.9% 10/2021 calcium normal COVID-negative -tolerating full liquid diet Hyperlipidemia Continue simvastatin Hypertension -Last took lisinopril midnight prior to surgery On lisinopril 10 mg p.o. nightly held both post procedurally and in the setting of elevated baseline creatinine Trend BMP Resume at 48 hours Anxiety/depression Continue sertraline 50 mg p.o. nightly We will continue home dose of lorazepam 0.5 mg p.o. as needed, uses rarely for anxiety. Has hx of one panic attack. Only uses ~2x per year. Type 2 diabetes mellitus A1c 6.9% 10/2021 - no change to home regimen on discharge Hold home metformin - Pharmacy consult in place by primary team, appreciate recs. Goal BSG 106136, CF 20, ratio 1:7, basal NPH 35x1 Advance to type II diabetic carb consistent diet when tolerated Obstructive sleep apnea CPAP nightly as needed - Brought home CPAP may use DVT prophylaxis: Per primary surgical team, continued on heparin subcu 5000 every 12 at this Diet: Clears, advance as able per surgical team to type II DM continue LR 100 until p.o. improved/tolerated then discontinue Disposition: [facility] CODE STATUS: Full code Thank you for the consult. No ongoing medical needs identified or changes to her home chronic medications from a medical perspective. We will sign off at this time. Please contact the medical team personal support worker provider if you wish us to review the patient. Admission and Anticipated Discharge Date Admission Date: January 07, 2022 Subjective Patient doing well post operatively. Pain over her operation site only when moving, severity 2/10 - improved after oxycodone given. Mild anemia expected post operatively. No nausea, vomiting, dizziness. Not yet passing gas or had a BM. Review of Systems Review of Systems: All systems reviewed & are unremarkable except as noted in Subjective Physical Exam Constitutional: WD/WN, vitals as above Eyes: + anicteric sclerae; normal pupil size ENMT: external ear and nose normal, oropharynx normal Respiratory: normal respiratory effort, lungs clear to auscultation Cardiovascular: RRR, no murmur, no edema Gastrointestinal (Abdomen): normal bowel sounds, soft, nontender, no hepatosplenomegaly Musculoskeletal: no cyanosis or clubbing, extremities motor strength 5/5 Skin: no rashes, warm and dry Neurologic: moves all extremities and awake; not confused Psychiatric: A+Ox3, euthymic affect Results & Data Results & Data ([facility]) Vital Signs (Past 12 Hours) Vital Signs Temp Pulse Pulse Resp BP Pulse Ox O2 Del Method 01/08/22 10:55 36.8 C 68 18 118/74 96 Room Air 01/08/22 07:39 36.8 C 100 H 20 124/70 90 Room Air 01/08/22 04:01 37.0 C 99 H 18 125/73 91 Room Air 01/07/22 23:55 36.9 C 94 H 18 116/72 92 Room Air PG Care Time/CCT Total # of Minutes Spent Total Time Spent with Patient: Total time spent is greater than 50% in coordination of care (as documented) at patient's floor/unit and/or counseling patient: Coding Level of Care Code 11724 Subseq Hosp Care Lvl 1 Diagnoses Renal mass N28.89
--- NOTE | 2022-01-08 12:01 | Pharmacy Report ---
Pharmacy Glycemic Short Note 2 - Date of Service January 08, 2022 - Glycemic Short BSG Results (Last 24 hours): 01/07/22 01/07/22 01/07/22 13:11 14:27 17:20 Glucose 221 H POC Glucose 196 H 181 H 01/07/22 01/07/22 01/08/22 20:42 23:53 04:00 Glucose POC Glucose 152 H 131 H 118 H 01/08/22 01/08/22 01/08/22 06:06 06:14 08:10 Glucose 151 H POC Glucose 151 H 147 H 01/08/22 11:48 Glucose POC Glucose 136 H OUTPATIENT ANTIDIABETIC REGIMEN: * metformin 500 mg PO BID * HbA1C = 6.9% ASSESSMENT: 01/08/22 * Patient's BSGs yesterday were [phone] mg/dL and overnight were 131-118 mg/dL. Patient received 39 units of insulin yesterday (35 units of basal and 4 units of bolus). * Today's BSGs are 151-136 mg/dL. * Tighten CF with breakfast in case of hold-over hyperglycemia from steroids. Will loosen as BSGs trended down significantly. Background * Patient is s/p surgery for kidney mass. Patient received steroids during surgery- dexamethasone 4 mg IV x 1. * BSG prior to surgery was 146 mg/dL. After surgery was 196 mg/dL. * Due to body habitus will give 0.4 unit/kg x 1 for steroid hyperglycemia. * Novolog weight-based stress 2. Overnight checks. PLAN FOR INPATIENT GLYCEMIC CONTROL: * Basal insulin * none * Bolus insulin * NovoLog per scale ACHS or Q6hrs while NPO * Goal Range: Low 110 mg/dL - High 140 mg/dL * Correction Factor: 25 mg/dL/unit * Nutritional / Prandial insulin per carb ratio of 1 unit per 8 grams CHO consumed
[2022-01-08] MEDS: SIMVASTATIN 40 MG TAB PO SCH (20:42)
[2022-01-08] MEDS: SERTRALINE HCL 50 MG TABLET PO SCH (20:42)
[2022-01-09] MEDS: ACETAMINOPHEN 325 MG TAB PO SCH ×5 (00:28→23:26)
[2022-01-09] MEDS: LACTATED RINGER'S 1,000 ML IV SCH (04:15)
[2022-01-09] MEDS: oxyCODONE HCL IR 5 MG TAB (IMMEDIATE RELEASE) PO PRN ×3 (04:18→20:26)
[2022-01-09 08:41] LABS: Basophils # (auto) 0.04 K/uL (0-0.2); Basophils % (auto) 0.4 %; Hematocrit (blood only) 29.7 % (34.1-44.9); Hemoglobin 9.6 g/dl (12.0-16.0); Immature Granulocytes # (auto) 0.05 K/uL (0.00-0.02); Immature Granulocytes % (auto) 0.5 %; Lymphocytes # (auto) 1.31 K/uL (1.2-3.4); Lymphocytes % (auto) 13.4 %; Mean Corpuscular Hemoglobin 31.3 pg (25.0-34.0); Mean Corpuscular Hgb Conc 32.3 g/dL (32.0-36.0); Mean Corpuscular Volume 96.7 fL (80.0-100.0); Mean Platelet Volume 9.8 fL (9.4-12.3); Monocytes # (auto) 1.21 K/uL (0.24-0.82); Monocytes % (auto) 12.4 %; Neutrophils # (auto) 7.06 K/uL (1.4-6.5); Neutrophils % (auto) 72.3 %; Platelet Count 184 K/uL (130-400); RDW Coefficient of Variation 13.2 % (11.5-14.5); Red Blood Count 3.07 M/uL (3.93-5.22); White Blood Count 9.77 K/ul (4.8-10.8)
[2022-01-09] MEDS: DOCUSATE SODIUM 100 MG CAP PO SCH ×2 (08:43→20:17)
[2022-01-09] MEDS: HEPARIN SOD 5,000 UNIT/0.5 ML VIAL SQ SCH ×2 (08:43→20:18)
[2022-01-09] MEDS: INSULIN ASPART PER UNIT SC SCH ×4 (09:00→20:49)
[2022-01-09 09:20] LABS: BUN Creatinine Ratio 13.7 (10-20); Calcium 8.4 mg/dl (8.5-10.1); Creatinine Clr Calc Pharmacy 60.4 ml/min; Est GFR (African American) 62.8 ml/min; Est GFR (Non-African American) 54.1 ml/min; Potassium 4.4 mmol/L (3.5-5.1)
--- NOTE | 2022-01-09 09:45 | Urology Progress Note ---
Date of Service January 09, 2022 Assessment & Plan (1) Renal mass: Plan - Pt POD#2 s/p Robotic Laparoscopic Assisted Left Partial Nephrectomy, Removal of Cyst Renal - Subjectively doing well, progressing as expected -One-time temp of 38.0 overnight, suspect this is atelectasis. Encourage ambulation we will continue to monitor. Labs relatively stable, slow downtrend of hemoglobin which is not on worrisome at this time. - Pain is tolerable -Advance to carb consistent diet - Dressings removed, incisions appropriate - Maintain YOVANI drain at present. We will likely remove at time of discharge. -Mckenzie catheter previously removed and voiding spontaneously - Encouraged OOB ambulation - Anticipate home tomorrow if she continues to progress as expected. Patient has yet to ambulate and probably could benefit from 24 more hours of observation. Admission and Anticipated Discharge Date Admission Date: January 07, 2022 Subjective No acute issues overnight. Afebrile and hemodynamically stable this morning. Remains on 3 L nasal cannula as she desats when off this. She did have a one- time temp of 38.0 last night. Suspect this is likely atelectasis. Labs today show a WBC of 9.77, hemoglobin of 9.6 (10.4), creatinine of 1.02. Her Mckenzie was removed yesterday and urine output has been adequate at 0.6 mL per kg per hour. Drain output is relatively low at 190 and is serous. She reports her pain is improving. She has yet to ambulate the halls. She is tolerating a full liquid diet. She denies any gas yet. She denies nausea. Review of Systems Review of Systems: 14 point review of systems negative outside of what is listed above in HPI Physical Exam Physical Exam: General: Alert and oriented, no acute distress HEENT: Normocephalic, mucous membranes moist Cardiovascular: Regular rate Pulmonary: Nonlabored respirations Abdomen: Nondistended, soft, appropriately tender. Incisions clean dry and intact with sammy in place. YOVANI drain with serosanguineous fluid. Extremities: Moves all 4 spontaneously Neuro: No gross deficits Skin: Warm, dry, no rashes noted Results & Data ([facility]) Vital Signs (Past 12 Hours) Vital Signs Temp Pulse Resp BP Pulse Ox O2 Del Method O2 Flow Rate 01/09/22 08:22 37.4 C 81 17 136/71 98 Nasal Cannula 3 01/08/22 23:28 38.0 C H 98 H 18 134/72 93 Room Air PG Care Time/CCT Total # of Minutes Spent Total Time Spent with Patient: Total time spent is greater than 50% in coordination of care (as documented) at patient's floor/unit and/or counseling patient: Coding Level of Care Code 20229 Subseq Hosp Care Lvl 2 Diagnoses Renal mass N28.89
[2022-01-09] MEDS: SIMVASTATIN 40 MG TAB PO SCH (20:18)
[2022-01-09] MEDS: SERTRALINE HCL 50 MG TABLET PO SCH (20:18)
[2022-01-09] MEDS ORDERED: lisinopril 10 MG TAB PO SCH (21:00)
[2022-01-10] MEDS: ACETAMINOPHEN 325 MG TAB PO SCH ×2 (05:54→12:45)
[2022-01-10 07:27] LABS: Basophils # (auto) 0.03 K/uL (0-0.2); Basophils % (auto) 0.3 %; Eosinophils # (auto) 0.19 K/uL (0-0.50); Eosinophils % (auto) 2.1 %; Hematocrit (blood only) 28.3 % (34.1-44.9); Hemoglobin 9.2 g/dl (12.0-16.0); Immature Granulocytes # (auto) 0.05 K/uL (0.00-0.02); Immature Granulocytes % (auto) 0.6 %; Lymphocytes # (auto) 0.95 K/uL (1.2-3.4); Lymphocytes % (auto) 10.5 %; Mean Corpuscular Hemoglobin 31.1 pg (25.0-34.0); Mean Corpuscular Hgb Conc 32.5 g/dL (32.0-36.0); Mean Corpuscular Volume 95.6 fL (80.0-100.0); Mean Platelet Volume 9.5 fL (9.4-12.3); Monocytes # (auto) 1.02 K/uL (0.24-0.82); Monocytes % (auto) 11.3 %; Neutrophils # (auto) 6.82 K/uL (1.4-6.5); Neutrophils % (auto) 75.2 %; Platelet Count 198 K/uL (130-400); RDW Coefficient of Variation 12.8 % (11.5-14.5); RDW Standard Deviation 44.7 fL (36.4-46.3); Red Blood Count 2.96 M/uL (3.93-5.22); White Blood Count 9.06 K/ul (4.8-10.8)
[2022-01-10 07:47] LABS: BUN Creatinine Ratio 16.5 (10-20); Calcium 8.7 mg/dl (8.5-10.1); Creatinine Clr Calc Pharmacy 59.8 ml/min; Est GFR (Non-African American) 53.5 ml/min; Potassium 4.3 mmol/L (3.5-5.1)
--- NOTE | 2022-01-10 08:34 | Urology Progress Note ---
Date of Service January 10, 2022 Assessment & Plan (1) Renal mass: Plan - Pt POD#3 s/p Robotic Laparoscopic Assisted Left Partial Nephrectomy, Removal of Cyst Renal - Subjectively doing well, progressing as expected -Afebrile with stable vitals. Labs stable. - Pain is tolerable -Continue carb consistent diet - Dressings removed, incisions appropriate -YOVANI drain removed at bedside. -Mckenzie catheter previously removed and voiding spontaneously - Encouraged OOB ambulation - Anticipate home tomorrow today assuming she ambulates without oxygen and does not desat. Admission and Anticipated Discharge Date Admission Date: January 07, 2022 Subjective No acute issues overnight. Afebrile for 24 hours. Hemodynamically stable. Down to 1 L nasal cannula. Labs stable today. Hemoglobin 9.2, was 9.6 previously. Creatinine 1.03. Drain output was 190 cc over previous 24 hours of 160 now. Patient reports improved pain control since yesterday. Ambulating. Down to 1 L nasal O2 but did well overnight when going to the bathroom. Tolerating diet. Review of Systems Review of Systems: 14 point review of systems negative outside of what is listed above in HPI Physical Exam Physical Exam: General: Alert and oriented, no acute distress HEENT: Normocephalic, mucous membranes moist Cardiovascular: Regular rate Pulmonary: Nonlabored respirations Abdomen: Nondistended, soft, appropriately tender. Incisions clean dry and intact with sammy in place. YOVANI drain with serosanguineous fluid. Extremities: Moves all 4 spontaneously Neuro: No gross deficits Skin: Warm, dry, no rashes noted Results & Data ([facility]) Vital Signs (Past 12 Hours) Vital Signs Temp Pulse Resp BP Pulse Ox O2 Del Method O2 Flow Rate 01/10/22 07:22 37.0 C 84 14 112/57 L 97 Nasal Cannula 1 01/09/22 22:05 36.8 C 84 20 129/77 98 Nasal Cannula 1 PG Care Time/CCT Total # of Minutes Spent Total Time Spent with Patient: Total time spent is greater than 50% in coordination of care (as documented) at patient's floor/unit and/or counseling patient: Coding [place] [address] Subseq Hosp Care Lvl 2 Patient Type Established Diagnoses Renal mass N28.89
[2022-01-10] MEDS: DOCUSATE SODIUM 100 MG CAP PO SCH (09:09)
[2022-01-10] MEDS: HEPARIN SOD 5,000 UNIT/0.5 ML VIAL SQ SCH (09:09)
[2022-01-10] MEDS: INSULIN ASPART PER UNIT SC SCH ×2 (09:17→12:45)
[2022-01-10] MEDS: oxyCODONE HCL IR 5 MG TAB (IMMEDIATE RELEASE) PO PRN (12:44)
--- NOTE | 2022-01-11 16:07 | Discharge Summary ---
Date of Service January 11, 2022 Admission HPI Per Admitting Provider Patient here for procedure. No changes in medical issues. No major changes in urinary issues. Continued issues and concerns. No change in pain or discomfort. No severe fevers or chills. No chest pain or shortness of breath. Risks and benefits discussed at length for procedure. These include bleeding, infection, injury to surrounding tissues or organs, and risks associated with anesthesia. Patient and/or family states understanding and agrees to proceed. Consent and supporting information completed. Admission Exam Per Admitting Provider Physical Exam: General: Alert/Arousable. No Acute illness. . HEENT: Inspection normal. Normal inspection of face. Normal inspection of neck. Psychologic: Normal affect/No change in mentation. Respiratory: No use of accessory muscles. No respiratory changes or exacerbation or changes with tachypnea or dyspnea. Cardiovascular: No tachycardia Skin: [place] and Dry. No new rashes or visible lesions. Abdomen: Normal inspection. No guarding. Principal Diagnosis Renal Mass Discharge Exam Constitutional well developed, well nourished and + obese; no acute distress and not ill appearing Respiratory normal respiratory effort and able to speak in complete sentences; no respiratory distress and no labored breathing Cardiovascular Extremities: no pedal edema Gastrointestinal (Abdomen) Inspection/Auscultation: abdomen normal to inspection; abdomen not distended Percussion/Palpation: abdomen soft; abdomen nontender and no guarding Musculoskeletal Extremities: extremities normal to inspection Neurologic moves all extremities and awake Psychiatric Orientation: alert and oriented x 3 Discharge Data Allergies Allergy/AdvReac Type Severity Reaction Status Date / Time adhesive Allergy Severe RASH Verified 01/07/22 06:17 azithromycin Allergy Intermediate Hives Verified 01/07/22 06:17 Consultations 01/07/22 12:28 Consult Hospitalist Routine Procedures Performed Operation Date: 01/07/22 07:50 Actual Procedures p Robotic Laparoscopic Assisted Left Partial Nephrectomy, Removal of Cyst Renal(Left) - Alonso Millan, DO Hospital Course (1) Renal mass: Plan - Pt POD#3 s/p Robotic Laparoscopic Assisted Left Partial Nephrectomy, Removal of Cyst Renal - Subjectively doing well, progressing as expected - Afebrile with stable vitals. Labs stable. - Pain is tolerable - Continue carb consistent diet - Dressings removed, incisions appropriate - YOVANI drain removed at bedside. - Mckenzie catheter previously removed and voiding spontaneously - Encouraged OOB ambulation - Anticipate home today assuming she ambulates without oxygen and does not desat. Total Time Total Time Spent Total Time Spent (In Minutes): 29 Discharge Plan Discharge Items Patient Disposition: Home - Self-Care Reason For Visit: Renal Mass Discharge Diagnosis: Renal mass Activity: Per Instructions section Lifting: No more than 10 pounds Bathing: No limitations Bathing Comment: Can shower. No bathing until seen in clinic. Exercise/Sports: None Driving/Machine Use: No limitations Weightbearing: Full weightbearing Non-emergency contact: Urologist Call non-emergency contact if: you have any medication questions, your pain is worsening, your temperature is above 101, your wound has increased redness, your wound has increased drainage and your wound pain has increased Follow-up/Referrals: Dolly Bundy D.O. [Primary Care Provider] - Diet: Regular Addtl Attending Provider Instructions: Restart all of your home medications Alternate Tylenol and ibuprofen as needed for pain control. Additional pain control with oxycodone prescribed Take Colace as a stool softener to prevent constipation Ambulate as much as comfortably possible at home Call with worsening pain, worsening drainage from incisions, fever or any other concerning questions You will be called regarding a follow-up to remove your sammy and to discuss pathology with Dr. Millan -You will have leakage from your drain site. This is normal. Cover with gauze as needed. Pending Studies at Discharge: Yes Studies:: Pathology Stand-Alone Forms: My [facility], Opioid Pain Management, Smoking Cessation Medications and DC Order Prescriptions: New oxycodone 5 mg tablet 5 mg PO Q6H Qty: 15 0RF docusate sodium [Col-Rite] 100 mg capsule 100 mg PO BID Qty: 20 0RF Continued lisinopril 10 mg tablet 10 mg PO HS simvastatin 40 mg tablet 40 mg PO HS sertraline [Zoloft] 50 mg tablet 50 mg PO HS metformin 500 mg tablet,ER michelet.retention 24 hr 500 mg PO BID Advil Dual Action 125-250 mg tablet 2 tab PO BID nystatin-triamcinolone 100,000-0.1 unit/g-% cream 1 applic topical DAILY PRN (Reason: Rash) nystatin 100,000 unit/gram powder 1 applic topical DAILY PRN (Reason: Rash) metronidazole [Metrogel] 1 % gel 1 applic topical QAM lorazepam [Ativan] 0.5 mg tablet 0.5 mg PO DAILY PRN (Reason: Anxiety) Systane Complete 0.6 % drops 1 drp ophthalmic (eye) DAILY PRN (Reason: Dry Eye(S)) vitamin B complex Capsule 2 cap PO BID Discharge Orders: Discharge Order (Routine); Ordered 01/10/22 Ordered By: Jose Justin/Other Patient Handouts: Nephrectomy Dc Admission Data Admit Date/Time: 01/07/22 12:24 Attending Provider: Alonso Millan Admit Provider: Alonso Millan Primary Care Provider: Dolly Bundy Other Providers: Bud Alfonso ; Karina English ; Keshav Narvaez ; Mert Judd ; Armond Carney ; Gallo Landin ; [place] Christensen ; Pina Nettles ; Melissa Mckeon ; Federico Tavarez ; Kiya Carey ; Manny Mccoy ; Moe Miguel ; Olivia Arias ; Amanda Robertson ; Antonella Schwarz ; Devin Webster ; Yunior Thompson ; Karina White ; Hilda Santamaria ; Kade Goss ; Keshav Torres ; Maryanne Maria ; Celeste Mora ; Varghese Martin ; Dolly Salas ; Thai Jernigan ; Jigar Bradford ; Gabby Whitlock ; Jean Claude Longo ; Shaheed Isbell Other Interventions: Discharge Summary Assessment (RN) Last Done: 01/10/22 11:41 Coding Level of Care Code D/C DAY MANAGEMENT <30 MINS Diagnoses Renal mass N28.89
== END 2022-01-10 13:53 | disposition home or self-care (01) ==
LOC: ASU 05:58 → INTOOBSV 12:24 → 3E 12:24